=== PATIENT | female | born 1965 | race Two or more races ===

== ENCOUNTER 2019-02-27 18:53 | Outpatient (AMB) | payer MEDICAID, SELFPAY ==
--- NOTE | 2019-02-27 20:59 | UC.NURSENOTE ---
Intake Intake Visit Reasons: UC Hand pain Office Procedures Level of Care Nursing/Assessment/Reassessment Patient Status: Initial/New Patient New Patient Charge New Patient Point Assignment: [facility] Procedures: UC LBTR: Yes Nurse/Tech Note [id number] PATIENT NOT IN LOBBY WHEN CALLED FOR TRIAGE AND ROOM PLACEMENT - PATIENT LEFT BEFORE TRIAGE - LBTR
== END 2019-02-27 21:01 | disposition left against medical advice (07) ==
PROVIDERS: PCP Physician Assistant; Referring Provider Physician Assistant; Visit Provider Physician Assistant

== ENCOUNTER → 2024-05-08 | Outpatient (CLI) | payer MEDICAID, SELFPAY ==
--- NOTE | 2024-05-08 10:44 | XR_ITS ---
Examination: PA lateral chest 2 views TECHNIQUE: Upright PA lateral chest 2 views Exam date and time: May 08, 2024 1120 hours Comparison December 14, 2014 INDICATIONS: Preop FINDINGS: Normal heart size The lungs are clear. The osseous structures are intact IMPRESSION: No active disease
== END | disposition home or self-care (01) ==
PROVIDERS: PCP Physician Assistant; Referring Provider Physician Assistant; Visit Provider Radiology Diagnostic Radiology
DX: Z01.810 Encounter for preprocedural cardiovascular examination (principal)
CPT/HCPCS: 71046

== ENCOUNTER → 2024-07-08 | Outpatient (CLI) | payer MEDICAID, SELFPAY ==
--- NOTE | 2024-07-08 13:30 | XR_ITS ---
Examination: Pelvic ultrasound, transabdominal, complete Technique: Transabdominal ultrasound of the pelvis performed using grayscale imaging Date and time of exam: July 08, 2024 1400 hours INDICATIONS: Left-sided pressure and pelvic pain 9 months hysterectomy 10 years ago FINDINGS: Absent uterus Right ovary 3.2 cm arterial flow Left ovary 3.1 cm arterial flow IMPRESSION: Negative for ovarian arterial torsion Negative for ovarian mass
== END | disposition home or self-care (01) ==
PROVIDERS: PCP Physician Assistant; Referring Provider Physician Assistant; Visit Provider Physician Assistant
DX: R10.2 Pelvic and perineal pain (principal)
CPT/HCPCS: 76856

== ENCOUNTER → 2024-12-23 | Outpatient (CLI) | payer MEDICAID, SELFPAY ==
--- NOTE | 2024-12-23 10:15 | XR_ITS ---
Examination: Screening digital mammography, bilateral Computer aided detection 3-D breast Tomosynthesis, bilateral Date and time of exam: 5 a shielded Indication: Screening Technique: Nonmagnified MLO, CC views of the breasts to been obtained, reconstructed from 3-D Tomosynthesis images. R2 computer aided detection program utilized for evaluation of suspicious masses and/or abnormal calcifications. 3-D Tomosynthesis images obtained. Findings: The breasts are heterogeneously dense, which may obscure small masses 12 mm focal asymmetry outer left breast CC view, 9 cm from the nipple The breast architecture overall is nodular Impression: BI-RADS Category 0: Incomplete: Need additional imaging evaluation 12 mm focal asymmetry outer left breast CC view, 9 cm from the nipple, recommend follow-up spot tomographic views upper outer quadrant left breast, bilateral breast sonography to complete the workup
== END | disposition home or self-care (01) ==
LOC: CDIM 09:58
PROVIDERS: Referring Provider Physician Assistant; Visit Provider Physician Assistant
DX: Z12.31 Encounter for screening mammogram for malignant neoplasm of breast (principal); N64.89 Other specified disorders of breast
CPT/HCPCS: 77063; 77067

== ENCOUNTER → 2025-02-19 | Outpatient (CLI) | payer MEDICAID, SELFPAY ==
--- NOTE | 2025-02-19 10:00 | XR_ITS ---
Examination: Breast ultrasound complete, bilateral Date and time of exam: February 19, 2025, 1033 hours INDICATIONS: Mammogram 12/24/1999 2512 mm focal asymmetry outer left breast cc view, 9 cm from the nipple Technique: Real-time grayscale ultrasonographic imaging bilateral breasts, including all 4 quadrants as well as nipple retroareolar and axillary regions. Findings: Sonographic images right breast Multiple benign cysts No solid nodules Sonographic images left breast Multiple benign cysts No solid nodules IMPRESSION: BI-RADS Category 2: Benign findings
--- NOTE | 2025-02-19 11:00 | XR_ITS ---
Examination: Diagnostic digital mammography, unilateral, left Computer aided detection 3-D breast Tomosynthesis, unilateral Date and time of exam: February 19, 2025, 1052 hours INDICATIONS: Mammogram 12/24/1999 2512 mm focal asymmetry outer left breast cc view, 9 cm from the nipple Technique: Nonmagnified MLO, CC views of the left breast have been obtained, reconstructed from 3-D Tomosynthesis images. R2 computer aided detection program utilized for evaluation of suspicious masses and/or abnormal calcifications. 3-D Tomosynthesis images obtained. Findings: The breast is heterogeneously dense, which may obscure small masses No suspicious masses depicted on the spot compression views Impression: BI-RADS category 2: Benign findings Return to yearly follow-up mammography
== END | disposition home or self-care (01) ==
PROVIDERS: PCP Physician Assistant; Referring Provider Physician Assistant; Visit Provider Physician Assistant
DX: R92.322 Mammographic fibroglandular density, left breast (principal)
CPT/HCPCS: 76641; 77061; 77065; G0279